=== PATIENT | female | born 1960 | race Caucasian/White ===

== ENCOUNTER 2018-03-29 22:20 | Emergency (ER) | payer OTHER ==
[~2018-03-29] VITALS: Ht 165.1 cm; Wt 77.3 kg
[~2018-03-29 22:20] MED LIST: ACET-48 PO; AMIT10TA6 PO; ASCO500 PO; BUSP15 PO; DEXT1TAB12 PO; DILT120C57 PO; DIVA-78 PO; FAMO20 PO; FIORIT PO; GABA-531 PO; HYDR-3965 PO; IPRA4AER IH; NITR.4 SL; PARO20TA24 PO; SULF1TAB3 PO; SUMA25TA9 PO
[2018-03-29] MEDS ORDERED: QUET200T PO (22:28)
[2018-03-29 22:33] LABS: GLUCOSE,POINT OF CARE 147 MG/DL (70-110)
[2018-03-29] MEDS ORDERED: HYDROCODONE/ACETAMINOPHEN 5-325 MG TABLET PO ONE (23:30)
[2018-03-29] MEDS ORDERED: DOXYCYCLINE HYCLATE 100 MG CAPSULE PO ONE (23:30)
[2018-03-29] MEDS ORDERED: CEPHALEXIN MONOHYDRATE 500 MG CAPSULE PO ONE (23:30)
[2018-03-30 00:20] VITALS: BP 145/86
== END 2018-03-30 00:33 | disposition home or self-care (01) ==
LOC: EMS 22:21
DX: L03.114 Cellulitis of left upper limb (principal); L73.9 Follicular disorder, unspecified; I11.0 Hypertensive heart disease with heart failure; I50.9 Heart failure, unspecified; J45.909 Unspecified asthma, uncomplicated; I25.2 Old myocardial infarction; K21.9 Gastro-esophageal reflux disease without esophagitis; F31.9 Bipolar disorder, unspecified